=== PATIENT | female | born 1990 | race Caucasian/White ===

== ENCOUNTER → 2016-06-12 | Outpatient (CLI) | payer OTHER ==
--- NOTE | 2016-06-12 14:52 | US ---
June 12, [address] Foy, Thank you for allowing us to see your patient regarding anatomy . As you know she is a 25 year-old g ravida 1, para 0. Her due date is 11/07/16 which is based on . Her current gestational age based on this dating is 18 weeks 6 days. She was seen previously for co-twin demise at 9 weeks Number of fetuses: 1 Placental location: posterior Cord Insertion: Central presentation: breech Cervix: 3.9 cm MVP: 4.3 cm The adnexa were evaluated. No pathology was seen. Right ovary seen Left ovary seen Measurements: Biparietal diameter: 43 mm 19 weeks, 1 days Head circumference: 160 mm 18 weeks, 6 days Abdominal circumference: 138 mm 19 weeks, 2 days Femur length: 27 mm 18 weeks, 3 days Humerus length: 27 mm 18 weeks, 3 days Transcerebellar diameter: 20 mm 19 weeks, 0 days Average ultrasound age: 19 weeks, 0 days Estimated weight: 259 gm weight percentile: 42 % ANATOMY Upper extremities: Normal Lower extremities: Normal Supratentorial brain: Normal Lateral ventricle: 3.8 mm Posterior fossa: Normal Cisterna Magna: 2.7 mm Spine: Normal Nuchal fold: 3.1 mm Face: Normal nose, lip, profile, alveolar ridge Heart: Normal rate, rhythm, axis, 4 chamber view, LVOT, RVOT, IVS Stomach: Normal Diaphragm: Normal Umbilical cord insertion: Normal Right kidney: Normal Left kidney: Normal Bladder: Normal Number of cord vessels: Three. Impression: This is a 25 year-old 1, para 0 at 18 weeks, 6 days gestation. 1. SIUP with biometry cw stated gestational age. Nl HORACE. No anatomic abnormalities noted. 2. I was happy to review these findings with your patient today. There was no evidence of co-twin de mise on today's exam. Thank you for allowing me to see your patient. NO E&M charged today. Katiuska Merritt MD Diagnosis Division of Maternal Medicine Department of Obstetrics and Gynecology [facility]
--- NOTE | 2016-06-12 19:00 | US ---
Complete Detailed Obstetrical Sonography Clinical History: 25-year-old female presenting for follow-up with a prior history of a cotwin demise at 9 weeks gestation. TECHNIQUE: A curvilinear 5 MHz transducer was used to sonographically evaluate the fetus and the plac enta. M-Mode Doppler is used. Dr. Bree Merritt is present. COMPARISON STUDY: First trimester obstetrical sonography, dated April 24, 2016. LMP: February 01, 2016, indicating an age of 18 weeks 6 days, and estimated date of delivery of November 07, 2016. FINDINGS: Again, there is a single viable intrauterine gestation. The fetus is currently breech in pr esentation. The placenta is posteriorly-situated, with no previa. The maternal cervical length is 3.9 cm, measured transabdominally. The amniotic fluid volume is appropriate with a maximum vertical pock et of 4.3 cm. The maternal ovaries are identified and appear normal, measuring 1.7 x 1.0 x 2.2 cm on the right, and 1.3 x 1.0 x 2.0 cm on the left. The heart rate is 155 bpm. There is a three-vess el cord with normal cord insertion, inserting 2.3 cm from the peripheral lateral margin. The anatomic survey reveals a normal appearance to the supra- and infratentorial structures. Th e lateral ventricular diameter is 3.8 mm, the cisterna magna is 2.7 mm, and the nuchal fold is 3.1 mm . The nasolabial anatomy and the alveolar ridge are normal. The sagittal facial profile appears normal. The spine is evaluated in sagittal and transverse planes, and appears normal. The four-chamb ered heart, right and left ventricle outflow tracts, and the interventricular septum appear normal, a s does the aortic and ductal arch. The diaphragm is intact. The stomach, right and left kidneys, urin lelia bladder, and upper and lower extremities appear normal. The gender is female. biometry is as follows: The biparietal diameter is 43 mm, corresponding to an age of 19 weeks 1 day +/- 1 week 6 days, which is at the 63rd percentile. The head circumference is 160 mm, corresponding to an age of 18 weeks 6 days +/- 1 week 4 days, which is at the 40th percentile. The abdominal circumference is 138 mm, corresponding to an age of 19 weeks 2 days +/- 2 weeks 1 day, which is at the 57th percentile. The femur length is 27 mm, corresponding to an age of 18 weeks 3 days +/- 1 week 6 days, which is at the 25th percentile. The humeral length is 27 mm, corresponding to an age of 18 weeks 3 days, and the transcerebellar diam eter is 20 mm, corresponding to an age of 19 weeks 0 days +/- 1 week 0 days for a composite gestation al age of 19 weeks 0 days. The estimated weight is 259 grams +/- 38 grams which is 9 ounces +/- 1 ounce, which is at the 4 2nd percentile. The head circumference to abdominal circumference ratio is normal, measuring 1.16. The femur length t o biparietal diameter ratio is 63%, and the femur length to abdominal circumference ratio is 20%. IMPRESSION: There is a single viable intrauterine gestation with no overt structural anomaly tello ving biometry concordant with menstrual dating and demonstrating appropriate interval growth since a study of April 24, 2016. Please also refer to Dr. Merritt's separate assessments and specific recommendations for follow-up.
== END ==
LOC: FIMAGING 13:39
PROVIDERS: ATTEND Obstetrics & Gynecology
DX: O31.21X2 Continuing pregnancy after intrauterine death of one fetus or more, first trimester, fetus 2 (principal); Z3A.11 11 weeks gestation of pregnancy

== ENCOUNTER → 2016-10-01 | Outpatient (CLI) | payer OTHER | LOC: FIMAGING 14:08 | PROVIDERS: ATTEND Obstetrics & Gynecology | DX: O36.5930 Maternal care for other known or suspected poor fetal growth, third trimester, not applicable or unspecified (principal); Z3A.34 34 weeks gestation of pregnancy ==